=== PATIENT | female | born 1980 | race Caucasian/White ===

== ENCOUNTER 2024-10-02 06:16 | Day surgery (SDC) | payer OTHER, SELFPAY ==
[2024-10-02 06:35] VITALS: BMI 33.5
[2024-10-02 06:53] LABS: Ur HCG Qualitative* Negative (Negative)
--- NOTE | 2024-10-02 07:08 | W.PM.H&PU ---
History & Physical Update History & Physical Update H&P Reviewed and patient assessed: No changes noted
--- NOTE | 2024-10-02 07:09 | PM.GSCN ---
History of Present Illness Consult details Date Seen: 10/02/24 Consult date: 10/02/24 Narrative: 44-year-old female with recent history of breast cancer s/p bilateral mastectomy with tissue expanders and right axillary lymph node biopsy was recently found to have right supraclavicular, mediastinal, and hilar lymphadenopathy with a cavitary nodule in the right lower lobe. FNA of supraclavicular lymph node showed metastatic adenocarcinoma lung primary. Patient was recommended to undergo chemotherapy and today she presents for Port-A-Cath placement. Patient also has a history of PE and has been on Eliquis. She held her Eliquis since Tuesday. Patient has no history of procedures on her neck and no previous ports. Review of Systems Narrative: General: no fevers HENT: no problems swallowing CV: no shortness of breath Resp: no cough GI: No nausea, vomiting, abdominal pain : no dysuria, no increased urinary frequency, no hematuria Skin: no new rashes Musculoskeletal: no back pain Neuro: no muscle weakness Psyche: no depression, no anxiety PFSH PFSH Surgical History (Updated 10/02/24 @ 07:11 by Jake Lau MD) Status post bilateral mastectomy ?Z90.13 - Acquired absence of bilateral breasts and nipples (ICD-10) Social History Smoking Status: Never smoker How often do you have a drink containing alcohol: 2-3 times a week How many standard drinks containing alcohol do you have on a typical day: 1 or 2 How often do you have six or more drinks on one occasion: Never AUDIT-C Alcohol total score: 3 Non-prescribed substance use: denies use Caffeine: No Are you using contraception or practicing any form of control: No Meds Home Medications and Allergies Home Medications ?Medication ?Instructions ?Recorded ?Confirmed ?Type acetaminophen 325 mg tablet 650 mg PO Q6H PRN 09/21/24 10/02/24 History (Tylenol) apixaban 5 mg tablet (Eliquis) 5 mg PO BID 09/21/24 10/02/24 History buspirone 10 mg tablet 10 mg PO BID 09/21/24 10/02/24 History fluoxetine 40 mg capsule 80 mg PO QDAY 09/21/24 10/02/24 History Allergies Allergy/AdvReac Type Severity Reaction Status Date / Time Sulfa (Sulfonamide Allergy Unknown Verified 10/02/24 06:33 Antibiotics) morphine AdvReac Intermediate Nausea Verified 10/02/24 06:33 Exam Narrative: Exam Narrative: General appearance: Alert, cooperative, and in no distress Neck: No healed scars in the neck, no hematomas. Pulmonary: Chest symmetric, lungs clear bilaterally Cardiovascular Heart: Regular rate and rhythm, S1, S2, no murmurs/rubs/gallops Skin: Normal skin color, texture, and turgor. No rashes or lesions. Psychiatric: Alert, cooperative, normal affect. Results Labs Labs: All other labs normal. Progress Note:A&P Assessment and plan (1) Lung cancer: Status: Acute Plan 44-year-old female with previous history of breast cancer now presents with metastatic lung adenocarcinoma presents for Port-A-Cath placement. I discussed with the patient my clinical findings. There are no contraindications to port placement. The procedure was discussed in detail. The risks associated procedure including infection, bleeding, and pneumothorax were all discussed with the patient. Patient is supposed to get a blood draw to check her platelets, will get that submitted today.
[2024-10-02] MEDS: LACTATED RINGERS 1000 ML 1,000 ML 100 ML IV (07:16)
[2024-10-02] MEDS: SODIUM CHLORIDE 0.9 % (FLUSH) 10 ML SYRINGE IVF (07:16)
[2024-10-02 07:25] VITALS: BP 132/100; PULSE 80; RESP 16; TEMP 36.7; O2SAT 97
[2024-10-02 07:26] LABS: Basophils Absolute Auto 0.01 K/uL (0.00-0.30); Basophils Percent Auto 0.2 % (0.0-3.0); Eosinophils Absolute Auto 0.23 K/uL (0.00-0.50); Eosinophils Percent Auto 4.2 % (0.0-7.0); Hematocrit 40.7 % (33.0-51.0); Hemoglobin* 13.5 gm/dL (12.0-16.0); Immature Granulocytes Abs Auto 0.02 K/uL (0.00-0.30); Immature Granulocytes Pct Auto 0.4 %; Lymphocytes Percent Auto 15.5 % (20-44); Mean Corpuscular HGB Conc 33 gm/dL (32-36); Mean Corpuscular Hemoglobin 31 pg (26-34); Mean Corpuscular Volume 92 fL (80-100); Monocytes Percent Auto 12.2 % (0.0-11.0); Neutrophils Absolute Auto 3.66 K/uL (1.7-7.0); Neutrophils Percent Auto 67.5 % (42.0-72.0); Platelet Count* 194 K/uL (140-440); Red Blood Count 4.42 m/uL (4.00-5.20); White Blood Count* 5.42 K/uL (4.50-11.00)
--- NOTE | 2024-10-02 07:30 | CRLHL7_ITS ---
For Patients: As a result of the Cures Act, medical imaging exams and procedure reports are released immediately into your electronic medical record. You may view this report before your referring provider. If you have questions, please contact your health care provider. INDICATION: Port placement. TECHNIQUE: Two spot images of the chest. 57.9 seconds fluoro time. FINDINGS: Right IJ catheter in place. Tip in the low SVC. Dictated by Yared Santiago MD @ 10/03/2024 9:39:35 AM (Electronically Signed)
[2024-10-02 07:33] LABS: Slide Review Reflex No
[2024-10-02] MEDS: CEFAZOLIN 1 GM inj IVP (07:35)
[2024-10-02 07:38] LABS: Albumin* 3.9 g/dL (3.3-5.0); Chloride* 108 mmol/L (96-114)
[2024-10-02 07:39] LABS: Potassium* 4.1 mmol/L (3.6-5.1); Sodium* 138 mmol/L (135-149)
[2024-10-02 07:41] LABS: Alanine Aminotransferase* 15 U/L (4-35); Alkaline Phosphatase* 69 U/L (40-150); Anion Gap 9 mEq/L (7-15); Aspartate Amino Transferase* 19 U/L (12-35); Bilirubin Total* 0.7 mg/dL (0.1-1.5); Blood Urea Nitrogen* 15 mg/dL (5-24); Carbon Dioxide* 21 mmol/L (20-32); Creatinine* 0.7 mg/dL (0.5-1.5); Est. Creatinine Clearance* 94.01; Estimated Glomerular Filt Rate 108 ml/min; Total Protein* 6.5 g/dL (6.0-8.3)
[2024-10-02 07:42] LABS: Calcium* 8.8 mg/dL (8.4-10.6); Glucose* 95 mg/dL (60-115)
[2024-10-02] MEDS: LIDOCAINE 1%-EPI 1:100,000 20 ML INFILTRATI (07:55)
[2024-10-02] MEDS: BUPIVACAINE 0.25% 30 ML 20 ML INJECTION (07:55)
[2024-10-02] MEDS: 0.9% SODIUM CHL 50 ML VIAL INJECTION (07:55)
[2024-10-02 08:02] LABS: HCG Quantitative* < 2.39 mIU/mL
[2024-10-02] MEDS: HEPARIN 500 UNIT/5 ML SYRINGE IVF (08:13)
[2024-10-02 08:22] VITALS: BP 127/79; PULSE 85; RESP 16; TEMP 36.2; O2SAT 98
--- NOTE | 2024-10-02 08:22 | PM.GSPRC ---
Operative Note Date of procedure: 10/02/24 Pre-op diagnosis: 1. Adenocarcinoma of the lung. Post-op diagnosis: Same Type of Procedure: 1. Right internal jugular Port-A-Cath placement under ultrasound and fluoroscopy guidance. Indications: 44-year-old female with history of breast cancer treated with bilateral mastectomy and right axillary sentinel lymph node biopsy was recently found to have mediastinal and supraclavicular adenopathy. FNA of the enlarged lymph node confirmed metastatic adenocarcinoma of the lung. Chemotherapy was recommended, and patient was referred to surgery for Port-A-Cath placement. Patient denies any for previous procedures on her neck. The procedure was discussed in detail. The risks associated procedure including infection, bleeding, and pneumothorax were all discussed with the patient, and she agreed to proceed. Procedure Description: After discussing the risks and benefits of the procedure, the patient signed informed consent.? The operative site was marked and the patient was brought to the operating room and placed on the operating table in supine position.? Care was taken to pad the patient's pressure points.?? The patient was then sedated by anesthesia.?? The operative site was then prepped and draped in the usual sterile fashion.? A time-out was then performed. Ultrasound was brought on to the field and right internal jugular vein was assessed. This was found to be large and easily compressible. The base of the neck directly overlying the internal jugular vein was then anesthetized with 1% lidocaine and 0.25% Marcaine mixture, and an introducer needle was inserted into the internal jugular vein using ultrasound guidance. Entry into the vein was confirmed by the presence of dark, nonpulsatile blood. A guide wire was advanced through the needle. The introducer needle was removed, leaving the wire in place. Fluoroscopy was brought onto the field and used to confirm the passage of the wire through the superior vena cava and into the right ventricle. Lidocaine was then used to infiltrate the port skin site, along with the proposed tunneling tract. A 3 cm incision was made at the site of the port pocket and subcutaneous tissue was dissected down using electrocautery. Subcutaneous pocket was created with blunt dissection and electrocautery. The catheter was advanced through the subcutaneous tissue using a tunneling trocar, exiting the incision at the base of the neck. The trocar was then disconnected. Fluoroscopy was again brought on to the field and the internal jugular vein and adjacent subcutaneous tissue was dilated with a pre-split introducer sheath in place. The wire was removed and the catheter was inserted into the introducer sheath. As the catheter was advanced, the sheath was split and divided, removing the sheath as the catheter was advanced into place. Fluoroscopy was again brought on to the field and the catheter position was examined. The entire course of the catheter was then viewed, and catheter was pulled back under direct visualization to ensure that the tip is in the SVC. The port was connected to the catheter tip and placed into previously created pocket. Prolene was used to place anchoring port sutures and the port was then secured in the pocket. The flow through the catheter was checked with a syringe, and found to be excellent. The incision at the base of the neck was then closed with a single interrupted 4-0 monocryl stitch and dressed with a Steri-Strip and a sterile bandage. Subdermal layer was re-approximated with interrupted 3-0 vicryl stitches and skin over the port was closed with 4-0 monocryl using subcuticular stitch. Major needle was inserted through the skin into the port and the port was flushed with heparinized saline. The needle was then removed. Steri strips, sterile 2x2 and Tegaderm was applied over the incision. The patient was then roused and brought to same day surgery in satisfactory condition. Sponge and needle counts were correct at the end of the procedure. Post procedure CXR was ordered to be done in same day surgery. Findings: Easily accessible right internal jugular vein. Anesthesia: MAC and local Surgeon: Jake Lau MD Estimated blood loss (mL): 10 Condition: stable Disposition: same day
--- NOTE | 2024-10-02 08:24 | CRLHL7_ITS ---
For Patients: As a result of the Century Cures Act, medical imaging exams and procedure reports are released immediately into your electronic medical record. You may view this report before your referring provider. If you have questions, please contact your health care provider. Indication: Port placement Technique: Chest 1 view Comparison: None Findings/Impression: Cardiovascular and mediastinum: Normal heart size with right-sided Port-A-Cath with tip at the cavoatrial junction. Lungs and pleural space: Lungs are clear. No sign of infiltrate or mass. No sign of pleural effusion. No pneumothorax. Bones and soft tissues: Bilateral breast expanders. Dictated by Guru Clay MD @ 10/02/2024 8:39:33 AM (Electronically Signed)
--- NOTE | 2024-10-02 08:24 | P.ANES_ITS ---
Anesthesia Charges Start Date/Time Anesthesia Start Date: 10/02/24 Anesthesia Start Time: 07:27 Stop Date/Time Anesthesia Stop Date: 10/02/24 Anesthesia Stop Time: 08:23 Coding CPT Codes CPT Codes: ANESTH VASCULAR ACCESS - 85699 ([id number]) P2 - PATIENT W/MILD SYST DISEASE, QK - PROGRAM PROJECT MANAGER 2-4 CNCRNT ANES PROC, QX - RN OR LVN SVC W/ MD MED DIRECTION
--- NOTE | 2024-10-02 08:24 | W.ANESCHARGE ---
Anesthesia Charges Start Date/Time Anesthesia Start Date: 10/02/24 Anesthesia Start Time: 07:27 Stop Date/Time Anesthesia Stop Date: 10/02/24 Anesthesia Stop Time: 08:23 Coding CPT Codes CPT Codes: ANESTH VASCULAR ACCESS - 67353 ([id number]) P2 - PATIENT W/MILD SYST DISEASE, QK - LOADING INSPECTOR 2-4 CNCRNT ANES PROC, QX - COTTON GINNER HELPER SVC W/ MD MED DIRECTION
--- NOTE | 2024-10-02 08:31 | P.ANES_ITS ---
Anesthesia Charges Start Date/Time Anesthesia Start Date: 10/02/24 Anesthesia Start Time: 07:27 Stop Date/Time Anesthesia Stop Date: 10/02/24 Anesthesia Stop Time: 08:23 Coding CPT Codes CPT Codes: ANESTH VASCULAR ACCESS - 34201 ([id number]) QK - CLAIMS CONFIGURATION ANALYST 2-4 CNCRNT ANES PROC, QX - APARTMENT LEASING SPECIALIST SVC W/ MD MED DIRECTION, P2 - PATIENT W/MILD SYST DISEASE
--- NOTE | 2024-10-02 08:31 | W.ANESCHARGE ---
Anesthesia Charges Start Date/Time Anesthesia Start Date: 10/02/24 Anesthesia Start Time: 07:27 Stop Date/Time Anesthesia Stop Date: 10/02/24 Anesthesia Stop Time: 08:23 Coding CPT Codes CPT Codes: ANESTH VASCULAR ACCESS - 47683 ([id number]) QK - MERCHANDISE COMPLAINT ADJUSTER 2-4 CNCRNT ANES PROC, QX - ONE PIECE EXPANSION MAKER HAND SVC W/ MD MED DIRECTION, P2 - PATIENT W/MILD SYST DISEASE
[2024-10-02 08:34] VITALS: BP 134/80; PULSE 71; RESP 16; O2SAT 99
--- NOTE | 2024-10-02 08:40 | SUR.PHASEII ---
Patient up to bathroom to void.
[2024-10-02 11:15] LABS: Thyroid Stimulating Hormone* 0.902 uIU/mL (0.270-4.20)
== END 2024-10-02 09:09 | disposition home or self-care (01) ==
PROVIDERS: Anesthesiology; Internal Medicine Hematology & Oncology; PCP Family Medicine; Visit Provider Surgery
PROC: (CPT 36561; principal; 2024-10-02 07:30)
DX: Z45.2 Encounter for adjustment and management of vascular access device (principal); C34.31 Malignant neoplasm of lower lobe, right bronchus or lung; C77.0 Secondary and unspecified malignant neoplasm of lymph nodes of head, face and neck; C77.1 Secondary and unspecified malignant neoplasm of intrathoracic lymph nodes; Z85.3 Personal history of malignant neoplasm of breast; Z86.711 Personal history of pulmonary embolism; Z79.01 Long term (current) use of anticoagulants; Z13.29 Encounter for screening for other suspected endocrine disorder; Z79.899 Other long term (current) drug therapy
CPT/HCPCS: 36561; 00532; 36415; 71045; 76998; 80053; 81025; 84443; 84702; 85025; C1788; J0665; J0690; J1642; J2250; J2405; J2704; J3490; J7120

== ENCOUNTER 2024-12-06 09:00 | Outpatient (RCR) | payer OTHER, SELFPAY ==
--- NOTE | 2024-09-25 12:37 | ONC.NURNOTE ---
Appointments reviewed with Vicki: PCP Dr Burrell has set up appt with Ryan KHAN tomorrow to address the bridging prior to the port placement Vicki understands this process as she was placed on lovenox for her lung biopsy labs prior to port placement on 10/02 in lab due to [facility] staff mtg in the early am chemo teaching will be at the time of her chemo appt on 10/04/24 she has started her Folic Acid daily dose
--- NOTE | 2024-09-25 12:40 | URNOTE ---
Prior auth is not required for Pembrolizumab (J9271), Carboplatin (J9045), Alimta (J9305), Fosaprepitant (J1453) and Palonosetron (J2469) per [employer] and [employer].
[2024-10-04 09:00] VITALS: BP 114/80; PULSE 82; RESP 16; TEMP 36; O2SAT 96
[2024-10-04] MEDS: PEMBROLIZUMAB 200 MG, TUBING PRIMARY 1 EACH, In-line 0.2 micron filter set 1 EACH in 0.... 216 MG IVPB (10:09)
[2024-10-04] MEDS: DEXAMETHASONE 10 MG/ML PF IVP (10:44)
[2024-10-04] MEDS: FOSAPREPITANT 150 MG inj 150 MG in 0.9 % SODIUM CHLORIDE 250 ml 250 ML 510 MG IVPB (10:47)
[2024-10-04] MEDS: PEMETREXED IV (11:34)
[2024-10-04] MEDS: TUBING SECONDARY IV (11:34)
[2024-10-04] MEDS: [UNRECOGNIZED DRUG - OTHER] IV (11:34)
[2024-10-04] MEDS: CARBOplatin 750 MG, TUBING SECONDARY 1 EACH in 0.9 % SODIUM CHLORIDE 250 ml 250 ML 650 MG IVPB (11:52)
--- NOTE | 2024-10-04 14:37 | ONC.NURNOTE ---
script for cranial prosthesis mailed to patient
--- NOTE | 2024-10-04 15:26 | ONC.NURNOTE ---
teaching on pembro, pemetrexed and carboplatin reviewed possible side effects, after hours management, mangement of fever, importance of activity, eating well, staying hydrated reviewed self care at home, treatment routine, calling with changes and concerns at home reviewed some of the more common immunotherapy toxicities, chemotherapy side effects reviewed constents of treatment binder questions addressed REJI and consents reviewed and signed
--- NOTE | 2024-10-04 15:29 | ONC.NURNOTE ---
PSDS =1 memory or concentration denies SS consult, will ket us know if needed at some point
--- NOTE | 2024-10-18 09:06 | ONC.NURNOTE ---
Pt called c/o UTI symptoms. Directed pt to call PCP or go to urgent care to be evaluated. Pt also states that she has what feels like a cold sore. She gets cold sores so she is not concerned about this. Pt verbalized understanding and will call PCP.
[2024-10-23 16:37] LABS: Hematocrit* 40.1 % (33.0-51.0); Hemoglobin* 13.1 gm/dL (12.0-16.0); Immature Granulocytes Pct Auto 0.2 %; Lymphocytes Absolute Auto 0.80 K/uL (0.90-2.90); Mean Corpuscular HGB Conc 33 gm/dL (32-36); Mean Corpuscular Hemoglobin 31 pg (26-34); Mean Corpuscular Volume 94 fL (80-100); RDW Coefficient of Variation % 13.0 % (11.5-15.5); Red Blood Count* 4.28 m/uL (4.00-5.20); White Blood Count* 4.20 K/uL (4.50-11.00)
[2024-10-23 16:39] LABS: Immature Granulocytes Abs Auto 0.00 K/uL (0.00-0.30); Slide Review Reflex No
[2024-10-23 17:15] LABS: HCG Quantitative* < 2.39 mIU/mL
[2024-10-24 09:29] LABS: Albumin* 4.1 g/dL (3.3-5.0); Chloride* 107 mmol/L (96-114); Potassium* 4.3 mmol/L (3.6-5.1); Sodium* 142 mmol/L (135-149)
[2024-10-24 09:32] LABS: Alanine Aminotransferase* 36 U/L (4-35); Alkaline Phosphatase* 82 U/L (40-150); Anion Gap 9 mEq/L (7-15); Aspartate Amino Transferase* 37 U/L (12-35); Bilirubin Total* 0.3 mg/dL (0.1-1.5); Blood Urea Nitrogen* 21 mg/dL (5-24); Calcium* 9.7 mg/dL (8.4-10.6); Carbon Dioxide* 26 mmol/L (20-32); Creatinine* 1.0 mg/dL (0.5-1.5); Est. Creatinine Clearance* 65.81; Estimated Glomerular Filt Rate 70 ml/min; Glucose* 89 mg/dL (60-115); Total Protein* 7.3 g/dL (6.0-8.3)
[2024-10-25] MEDS: SODIUM CHLORIDE 0.9 % (FLUSH) 10 ML SYRINGE IVF ×2 (09:50→12:20)
[2024-10-25] MEDS: PEMBROLIZUMAB 200 MG, TUBING PRIMARY 1 EACH, In-line 0.2 micron filter set 1 EACH in 0.... 216 MG IVPB (10:01)
[2024-10-25] MEDS: DEXAMETHASONE 10 MG/ML PF IVP (10:37)
[2024-10-25] MEDS: FOSAPREPITANT 150 MG inj 150 MG in 0.9 % SODIUM CHLORIDE 250 ml 250 ML 510 MG IVPB (10:40)
[2024-10-25] MEDS: TUBING SECONDARY IV (11:21)
[2024-10-25] MEDS: [UNRECOGNIZED DRUG - OTHER] IV (11:21)
[2024-10-25] MEDS: PEMETREXED IV (11:21)
[2024-10-25] MEDS: CARBOPLATIN IVPB (11:44)
[2024-10-25] MEDS: SODIUM CHLORIDE 0.9% IVPB (11:44)
[2024-10-25] MEDS: TUBING SECONDARY IVPB (11:44)
[2024-10-25] MEDS: HEPARIN 500 UNIT/5 ML SYRINGE IVF (12:20)
[2024-10-30 16:39] LABS: Albumin* 4.3 g/dL (3.3-5.0); Chloride* 102 mmol/L (96-114); Potassium* 4.0 mmol/L (3.6-5.1); Sodium* 137 mmol/L (135-149)
[2024-10-30 16:42] LABS: Alanine Aminotransferase* 52 U/L (4-35); Alkaline Phosphatase* 87 U/L (40-150); Anion Gap 8 mEq/L (7-15); Aspartate Amino Transferase* 39 U/L (12-35); Bilirubin Total* 0.5 mg/dL (0.1-1.5); Blood Urea Nitrogen* 23 mg/dL (5-24); Calcium* 9.5 mg/dL (8.4-10.6); Carbon Dioxide* 27 mmol/L (20-32); Creatinine* 0.9 mg/dL (0.5-1.5); Est. Creatinine Clearance* 73.12; Estimated Glomerular Filt Rate 80 ml/min; Glucose* 99 mg/dL (60-115); Total Protein* 7.1 g/dL (6.0-8.3)
[2024-11-13 16:15] LABS: Hematocrit* 36.8 % (33.0-51.0); Hemoglobin* 12.2 gm/dL (12.0-16.0); Immature Granulocytes Pct Auto 0.7 %; Mean Corpuscular HGB Conc 33 gm/dL (32-36); Mean Corpuscular Hemoglobin 31 pg (26-34); Mean Corpuscular Volume 93 fL (80-100); RDW Coefficient of Variation % 13.6 % (11.5-15.5); Red Blood Count* 3.96 m/uL (4.00-5.20); White Blood Count* 2.86 K/uL (4.50-11.00)
[2024-11-13 16:18] LABS: Albumin* 4.2 g/dL (3.3-5.0); Chloride* 106 mmol/L (96-114); Sodium* 141 mmol/L (135-149)
[2024-11-13 16:19] LABS: Immature Granulocytes Abs Auto 0.00 K/uL (0.00-0.30); Lymphocytes Absolute Auto 0.80 K/uL (0.90-2.90); Potassium* 4.5 mmol/L (3.6-5.1); Slide Review Reflex No
[2024-11-13 16:21] LABS: Alanine Aminotransferase* 55 U/L (4-35); Alkaline Phosphatase* 85 U/L (40-150); Anion Gap 9 mEq/L (7-15); Aspartate Amino Transferase* 42 U/L (12-35); Bilirubin Total* 0.3 mg/dL (0.1-1.5); Blood Urea Nitrogen* 14 mg/dL (5-24); Carbon Dioxide* 26 mmol/L (20-32); Creatinine* 0.9 mg/dL (0.5-1.5); Est. Creatinine Clearance* 73.12; Estimated Glomerular Filt Rate 80 ml/min; Total Protein* 7.4 g/dL (6.0-8.3)
[2024-11-13 16:22] LABS: Calcium* 9.2 mg/dL (8.4-10.6); Glucose* 123 mg/dL (60-115)
[2024-11-13 17:17] LABS: HCG Quantitative* < 2.39 mIU/mL
[2024-11-14] MEDS: SODIUM CHLORIDE 0.9 % (FLUSH) 10 ML SYRINGE IVF ×2 (09:20→11:50)
[2024-11-14] MEDS: DEXAMETHASONE 10 MG/ML PF IVP (09:31)
[2024-11-14] MEDS: FOSAPREPITANT 150 MG inj 150 MG in 0.9 % SODIUM CHLORIDE 250 ml 250 ML 510 MG IVPB (09:34)
[2024-11-14] MEDS: PEMBROLIZUMAB 200 MG, TUBING PRIMARY 1 EACH, In-line 0.2 micron filter set 1 EACH in 0.... 216 MG IVPB (10:08)
[2024-11-14] MEDS: TUBING SECONDARY IV (10:47)
[2024-11-14] MEDS: PEMETREXED IV (10:47)
[2024-11-14] MEDS: [UNRECOGNIZED DRUG - OTHER] IV (10:47)
[2024-11-14] MEDS: TUBING SECONDARY IVPB (11:12)
[2024-11-14] MEDS: SODIUM CHLORIDE 0.9% IVPB (11:12)
[2024-11-14] MEDS: CARBOPLATIN IVPB (11:12)
[2024-11-14] MEDS: HEPARIN 500 UNIT/5 ML SYRINGE IVF (11:50)
[2024-11-14] MEDS: PEGFILGRASTIM-CBQV (ONBODY) 6 MG/0.6 ML SUBCUT (11:52)
[2024-11-23 09:01] VITALS: BP 113/79; PULSE 87; TEMP 36.7; O2SAT 98
[2024-12-05 15:45] LABS: Hematocrit* 33.8 % (33.0-51.0); Hemoglobin* 11.1 gm/dL (12.0-16.0); Immature Granulocytes Abs Auto 0.06 K/uL (0.00-0.30); Immature Granulocytes Pct Auto 1.2 %; Lymphocytes Absolute Auto 0.70 K/uL (0.90-2.90); Mean Corpuscular HGB Conc 33 gm/dL (32-36); Mean Corpuscular Hemoglobin 32 pg (26-34); Mean Corpuscular Volume 96 fL (80-100); RDW Coefficient of Variation % 15.4 % (11.5-15.5); Red Blood Count* 3.52 m/uL (4.00-5.20); Slide Review Reflex No; White Blood Count* 5.03 K/uL (4.50-11.00)
[2024-12-05 16:05] LABS: Albumin* 4.3 g/dL (3.3-5.0); Chloride* 104 mmol/L (96-114)
[2024-12-05 16:06] LABS: Potassium* 4.0 mmol/L (3.6-5.1); Sodium* 138 mmol/L (135-149)
[2024-12-05 16:08] VITALS: BP 130/77; PULSE 100; RESP 16; O2SAT 99
[2024-12-05 16:08] LABS: Alanine Aminotransferase* 42 U/L (4-35); Aspartate Amino Transferase* 40 U/L (12-35); Blood Urea Nitrogen* 18 mg/dL (5-24); Creatinine* 0.9 mg/dL (0.5-1.5); Est. Creatinine Clearance* 73.12; Estimated Glomerular Filt Rate 80 ml/min
[2024-12-05 16:09] LABS: Alkaline Phosphatase* 98 U/L (40-150); Anion Gap 6 mEq/L (7-15); Bilirubin Total* 0.3 mg/dL (0.1-1.5); Calcium* 9.3 mg/dL (8.4-10.6); Carbon Dioxide* 28 mmol/L (20-32); Glucose* 113 mg/dL (60-115); Total Protein* 7.6 g/dL (6.0-8.3)
[2024-12-05 16:36] LABS: HCG Quantitative* < 2.39 mIU/mL
[2024-12-06] MEDS: PEMBROLIZUMAB 200 MG, TUBING PRIMARY 1 EACH, In-line 0.2 micron filter set 1 EACH in 0.... 216 MG IVPB (09:34)
[2024-12-06] MEDS: FOSAPREPITANT 150 MG inj 150 MG in 0.9 % SODIUM CHLORIDE 250 ml 250 ML 650 MG IVPB (10:13)
[2024-12-06] MEDS: DEXAMETHASONE 10 MG/ML PF IVP (10:13)
[2024-12-06] MEDS: TUBING SECONDARY IV (10:49)
[2024-12-06] MEDS: PEMETREXED IV (10:49)
[2024-12-06] MEDS: [UNRECOGNIZED DRUG - OTHER] IV (10:49)
[2024-12-06] MEDS: CARBOPLATIN IVPB (11:11)
[2024-12-06] MEDS: SODIUM CHLORIDE 0.9% IVPB (11:11)
[2024-12-06] MEDS: TUBING SECONDARY IVPB (11:11)
[2024-12-06] MEDS: PEGFILGRASTIM-CBQV (ONBODY) 6 MG/0.6 ML SUBCUT (11:13)
[2024-12-06] MEDS: HEPARIN 500 UNIT/5 ML SYRINGE IVF (11:48)
[2024-12-06] MEDS: SODIUM CHLORIDE 0.9 % (FLUSH) 10 ML SYRINGE IVF (11:48)
--- NOTE | 2024-12-13 11:10 | ONC.NURNOTE ---
Pt called and LM stating that she was seen at [facility] in [place] and they have decided that she is done with chemo. Vicki asked that all appts at [facility] be cancelled. This was done.
== END 2025-03-20 23:59 | disposition home or self-care (01) ==
LOC: CCIC 09:00
PROVIDERS: Clinical Nurse Specialist; Internal Medicine Hematology & Oncology; PCP Family Medicine; Referring Provider Family Medicine; Visit Provider Physician Assistant
DX: Z51.11 Encounter for antineoplastic chemotherapy (principal); C34.91 Malignant neoplasm of unspecified part of right bronchus or lung; C50.911 Malignant neoplasm of unspecified site of right female breast; Z17.0 Estrogen receptor positive status [ER+]; Z29.89 Encounter for other specified prophylactic measures; Z90.13 Acquired absence of bilateral breasts and nipples; K21.9 Gastro-esophageal reflux disease without esophagitis; R79.89 Other specified abnormal findings of blood chemistry; Z86.711 Personal history of pulmonary embolism; Z79.01 Long term (current) use of anticoagulants
CPT/HCPCS: 36415; 80053; 84443; 84702; 85025; 96367; 96372; 96375; 96377; 96411; 96413; 96417; 99202; 99205; 99211; 99214; 99215; G0463; J1100; J1453; J1642; J2469; J3420; J7050; J9045; J9271; J9305; Q5111